=== PATIENT | female | born 1950 | race Hispanic/Latino ===

== ENCOUNTER → 2024-09-10 | Day surgery (SDC) | payer MEDICARE ==
[2024-09-09 15:08] LABS: BASOPHILS # (AUTO) 0.1 (0.0-0.1); BASOPHILS % 0.6 % (0.0-1.0); EOSINOPHILS # (AUTO) 0.2 (0.0-0.4); EOSINOPHILS % 2.6 % (0.0-6.0); HEMATOCRIT 32.3 % (34.2-44.1); HEMOGLOBIN 10.3 g/dL (12.0-16.0); LYMPHOCYTES # (AUTO) 3.3 (1.0-3.2); LYMPHOCYTES % 34.9 % (18.0-39.1); MEAN CORPUSCULAR HEMOGLOBIN 28.9 pg (28-32); MEAN CORPUSCULAR HGB CONC 31.9 g/dL (31-35); MEAN CORPUSCULAR VOLUME 90.5 fL (81-99); MONOCYTES # (AUTO) 0.7 (0.2-0.8); MONOCYTES % 7.2 % (4.4-11.3); NEUTROPHILS # (AUTO) 5.1 (2.1-6.9); NEUTROPHILS % 54.4 % (38.7-80.0); PLATELET COUNT 235 x10e3/uL (140-360); RED BLOOD COUNT 3.57 x10e6/uL (3.6-5.1); WHITE BLOOD COUNT 9.41 x10e3/uL (4.8-10.8)
[2024-09-09 15:29] LABS: ALBUMIN 3.7 g/dL (3.5-5.0); ALBUMIN/GLOBULIN RATIO 1.2 (0.8-2.0); BILIRUBIN,TOTAL 0.2 mg/dL (0.2-1.2); CALCIUM 9.3 mg/dL (8.4-10.2); CREATININE, SERUM 1.18 mg/dL (0.57-1.11); TOTAL PROTEIN 6.9 g/dL (6.5-8.1)
[~2024-09-10] MED LIST: ACETAMINOPHEN 1000 MG/100 ML 100 ML IV ONE; BENICAR5 MG PO; CELEXA10 MG PO; CRESTOR40 MG PO; DEXAMETHASONE SOD PHOS INJ 4 MG/ML SDV ONE; FAMOTIDINE20 MG PO; FENTANYL CITRATE/PF 100MCG/2 ML INJ ONE; FLONASE ALLERG9.9 ML INH; GABAPENTIN300 MG PO; HUMALOG SC; JANUVIA100 MG PO; LABETALOL HCL 20 ML ONE; LIDOCAINE HCL 2% LOCAL INJ 5 ML SDV VIAL INJ ONE; METFORMIN HCL500 MG PO; METOPROLOL SUCC25 MG PO; MONTELUKAST SOD10 MG PO; MOUNJARO2.5 MG/0.5 SC; ONDANSETRON HCL INJ 2MG/ML 2ML 2 MG/ML VIAL ONE; PHENYLEPHRINE HCL 1% 10 MG/ML VIAL ONE; PROPOFOL IV EMULSION 10 MG/ML 20 ML VIAL ONE; ROCURONIUM BROMIDE 1 ML IV ONE; SEVOFLURANE INHAL SOLN 250 ML PEN BTL ONE; SUGAMMADEX SODIUM 200 MG/2 ML VIAL IV ONE; TRESIBA100 UNIT/1 SC; ZETIA10 MG PO
[2024-09-10] MEDS: CEFTRIAXONE 1 GM VIAL ONE (11:50)
[2024-09-10] MEDS: SODIUM CHLORIDE 0.9% 1000ML 1,000 ML ONE (11:52)
[2024-09-10 16:09] VITALS: TEMP 97.5
[2024-09-10 17:15] VITALS: BP 155/67; PULSE 63; RESP 16; O2SAT 97
== END | disposition home or self-care (01) ==
LOC: OR 11:22
PROVIDERS: ATTEND Urology
DX: C67.9 Malignant neoplasm of bladder, unspecified (principal); N36.41 Hypermobility of urethra; N81.2 Incomplete uterovaginal prolapse; N95.2 Postmenopausal atrophic vaginitis; I10 Essential (primary) hypertension; E78.5 Hyperlipidemia, unspecified; E11.9 Type 2 diabetes mellitus without complications; J45.909 Unspecified asthma, uncomplicated; K21.9 Gastro-esophageal reflux disease without esophagitis; K58.9 Irritable bowel syndrome, unspecified; M06.9 Rheumatoid arthritis, unspecified; M19.90 Unspecified osteoarthritis, unspecified site; F32.A Depression, unspecified; Z01.810 Encounter for preprocedural cardiovascular examination; Z01.812 Encounter for preprocedural laboratory examination; Z01.818 Encounter for other preprocedural examination; Z79.84 Long term (current) use of oral hypoglycemic drugs; Z79.85 Long-term (current) use of injectable non-insulin antidiabetic drugs; Z79.4 Long term (current) use of insulin; Z79.899 Other long term (current) drug therapy
CPT/HCPCS: 36415 ×2; 52005; 52240; 71046; 74420; 80053; 82948; 85025; 87086; 88304; 93005; C1758; J0131; J0696; J1100; J2003; J2371; J2405; J2704; J3010; J3490; J7030

== ENCOUNTER → 2024-12-03 | Day surgery (SDC) | payer MEDICARE ==
[~2024-12-03] MED LIST changes: +FAMOTIDINE 20 MG/2 ML VIAL IV ONE; +GLYCOPYRROLATE INJ 0.2 MG/ML VIAL ONE; -LABETALOL HCL 20 ML ONE; -ROCURONIUM BROMIDE 1 ML IV ONE; -SEVOFLURANE INHAL SOLN 250 ML PEN BTL ONE; -SUGAMMADEX SODIUM 200 MG/2 ML VIAL IV ONE
[2024-12-03] MEDS: CEFTRIAXONE 1 GM VIAL ONE (06:31)
[2024-12-03] MEDS: SODIUM CHLORIDE 0.9% 1000ML 1,000 ML ONE (06:31)
[2024-12-03 06:49] LABS: BASOPHILS # (AUTO) 0.1 (0.0-0.1); BASOPHILS % 0.5 % (0.0-1.0); EOSINOPHILS # (AUTO) 0.4 (0.0-0.4); EOSINOPHILS % 3.3 % (0.0-6.0); HEMATOCRIT 30.8 % (34.2-44.1); HEMOGLOBIN 9.6 g/dL (12.0-16.0); LYMPHOCYTES # (AUTO) 3.4 (1.0-3.2); MEAN CORPUSCULAR HEMOGLOBIN 27.2 pg (28-32); MEAN CORPUSCULAR HGB CONC 31.2 g/dL (31-35); MEAN CORPUSCULAR VOLUME 87.3 fL (81-99); MONOCYTES # (AUTO) 0.8 (0.2-0.8); NEUTROPHILS # (AUTO) 6.3 (2.1-6.9); NEUTROPHILS % 57.6 % (38.7-80.0); PLATELET COUNT 261 x10e3/uL (140-360); RED BLOOD COUNT 3.53 x10e6/uL (3.6-5.1); RED CELL DISTRIBUTION WIDTH 16.3 % (11.7-14.4); WHITE BLOOD COUNT 10.94 x10e3/uL (4.8-10.8)
[2024-12-03 07:19] LABS: ALBUMIN 3.8 g/dL (3.5-5.0); ALBUMIN/GLOBULIN RATIO 1.1 (0.8-2.0); ANION GAP 13.8 mmol/L (8-16); BILIRUBIN,TOTAL 0.2 mg/dL (0.2-1.2); CALCIUM 9.1 mg/dL (8.4-10.2); CREATININE, SERUM 1.2 mg/dL (0.57-1.11); POTASSIUM 3.8 mmol/L (3.5-5.1); TOTAL PROTEIN 7.4 g/dL (6.5-8.1)
[2024-12-03 09:41] VITALS: TEMP 98.1
[2024-12-03] MEDS: PHENAZOPYRIDINE HCL 100 MG TAB ONE (10:15)
[2024-12-03 11:25] VITALS: BP 147/79; PULSE 82; RESP 18; O2SAT 97
== END | disposition home or self-care (01) ==
LOC: OR 05:55
PROVIDERS: ATTEND Urology
DX: C67.9 Malignant neoplasm of bladder, unspecified (principal); N32.89 Other specified disorders of bladder; N81.2 Incomplete uterovaginal prolapse; N36.41 Hypermobility of urethra; N95.2 Postmenopausal atrophic vaginitis; I10 Essential (primary) hypertension; E78.5 Hyperlipidemia, unspecified; J45.909 Unspecified asthma, uncomplicated; E11.9 Type 2 diabetes mellitus without complications; F32.A Depression, unspecified; K58.9 Irritable bowel syndrome, unspecified; E66.9 Obesity, unspecified; M19.90 Unspecified osteoarthritis, unspecified site; Z79.84 Long term (current) use of oral hypoglycemic drugs; Z79.85 Long-term (current) use of injectable non-insulin antidiabetic drugs; Z79.4 Long term (current) use of insulin; Z79.899 Other long term (current) drug therapy; Z68.30 Body mass index [BMI] 30.0-30.9, adult
CPT/HCPCS: 36415; 52005; 52224; 74420; 80053; 82948; 85025; 87086; 87186; 88305; C1758; J0131; J0696; J1100; J1308; J2003; J2371; J2405; J2704; J3010; J7030

== ENCOUNTER 2025-04-08 08:29 | Inpatient (IN) | payer MEDICARE ==
[2025-04-07 11:52] LABS: BASOPHILS % 0.5 % (0.0-1.0); EOSINOPHILS % 3.2 % (0.0-6.0); LYMPHOCYTES % 28.5 % (18.0-39.1); MONOCYTES % 6.6 % (4.4-11.3); NEUTROPHILS % 61.0 % (38.7-80.0); RED CELL DISTRIBUTION WIDTH 14.8 % (11.7-14.4)
[2025-04-07 12:24] LABS: EST GLOMERULAR FILTRATION RATE 52.0 ML/MIN (>=60)
[~2025-04-08] VITALS: Ht 149.9 cm; Wt 63.5 kg
[~2025-04-08 08:29] MED LIST changes: -ACETAMINOPHEN 1000 MG/100 ML 100 ML IV ONE; -DEXAMETHASONE SOD PHOS INJ 4 MG/ML SDV ONE; -FAMOTIDINE 20 MG/2 ML VIAL IV ONE; -FENTANYL CITRATE/PF 100MCG/2 ML INJ ONE; -GLYCOPYRROLATE INJ 0.2 MG/ML VIAL ONE; +IRON325 M1 PO; -LIDOCAINE HCL 2% LOCAL INJ 5 ML SDV VIAL INJ ONE; +MAGNESIUM GLUCO27 MG PO; -ONDANSETRON HCL INJ 2MG/ML 2ML 2 MG/ML VIAL ONE; -PHENYLEPHRINE HCL 1% 10 MG/ML VIAL ONE; -PROPOFOL IV EMULSION 10 MG/ML 20 ML VIAL ONE
[2025-04-08] MEDS: CEFAZOLIN SODIUM 2 GM ONE (09:26)
[2025-04-08] MEDS: SODIUM CHLORIDE 0.9% 1000ML 1,000 ML ONE (09:26)
[2025-04-08] MEDS ORDERED: SEVOFLURANE INHAL SOLN 250 ML PEN BTL ONE (10:29)
[2025-04-08] MEDS ORDERED: PROPOFOL IV EMULSION 10 MG/ML 20 ML VIAL ONE (10:29)
[2025-04-08] MEDS ORDERED: LIDOCAINE HCL 2% LOCAL INJ 5 ML SDV VIAL INJ ONE (10:29)
[2025-04-08] MEDS ORDERED: FENTANYL CITRATE/PF 100MCG/2 ML INJ ONE (10:29)
[2025-04-08] MEDS ORDERED: ROCURONIUM BROMIDE 1 ML IV ONE ×2 (10:29→13:37)
[2025-04-08] MEDS ORDERED: ACETAMINOPHEN 1000 MG/100 ML 100 ML IV ONE (11:48)
[2025-04-08] MEDS ORDERED: FAMOTIDINE 20 MG/2 ML VIAL IV ONE (11:49)
[2025-04-08] MEDS ORDERED: ONDANSETRON HCL INJ 2MG/ML 2ML 2 MG/ML VIAL ONE (11:49)
[2025-04-08] MEDS ORDERED: DEXAMETHASONE SOD PHOS INJ 4 MG/ML SDV ONE (11:49)
[2025-04-08] MEDS ORDERED: DIPHENHYDRAMINE HCL INJ 50 MG/ML VIAL IM PRN (13:00)
[2025-04-08] MEDS ORDERED: ACETAMINOPHEN 1000 MG/100 ML IV PRN (13:00)
[2025-04-08] MEDS ORDERED: ONDANSETRON HCL INJ 2MG/ML 2ML 2 MG/ML VIAL IV PRN (13:00)
[2025-04-08] MEDS: SODIUM CHLORIDE 0.9% 250ML IRRIG IR SCH (13:00)
[2025-04-08] MEDS ORDERED: NALOXONE HCL INJ 0.4 MG/ML AMP IV PRN (13:00)
[2025-04-08] MEDS ORDERED: PHENYLEPHRINE HCL 1% 10 MG/ML VIAL ONE (13:41)
[2025-04-08] MEDS ORDERED: SODIUM CHLORIDE 0.9% 1000ML 2,000 ML ONE (14:14)
[2025-04-08] MEDS ORDERED: LACTATED RINGER'S 1,000 ML ONE (14:14)
[2025-04-08] MEDS ORDERED: SUGAMMADEX SODIUM 200 MG/2 ML VIAL IV ONE (16:02)
[2025-04-08] MEDS ORDERED: HYDROMORPHONE 2MG/ML ONE (16:04)
[2025-04-08] MEDS: MORPHINE SULFATE 1 MG/ML 30ML PCA IV PRN (17:30)
[2025-04-08 17:49] LABS: BASOPHILS % 0.2 % (0.0-1.0); EOSINOPHILS % 0.1 % (0.0-6.0); LYMPHOCYTES % 14.1 % (18.0-39.1); MONOCYTES % 3.8 % (4.4-11.3); NEUTROPHILS % 81.3 % (38.7-80.0); RED CELL DISTRIBUTION WIDTH 15.3 % (11.7-14.4)
[2025-04-08 18:10] LABS: EST GLOMERULAR FILTRATION RATE 70.0 ML/MIN (>=60)
[2025-04-08] MEDS: MORPHINE SULFATE 1 MG/ML 30ML PCA ONE (18:28)
[2025-04-08 19:00] VITALS: BP 118/53; PULSE 88; PULSE 98; RESP 10; RESP 14; TEMP 96.8; O2SAT 90; O2SAT 95
[2025-04-08 19:27] VITALS: PULSE 93; RESP 14; O2SAT 94
[2025-04-08 20:00] VITALS: BP 126/53; PULSE 100; PULSE 95; RESP 13; RESP 15; O2SAT 92; O2SAT 94
[2025-04-08 21:00] VITALS: BP 127/53; PULSE 100; RESP 11; O2SAT 95
[2025-04-08] MEDS: SODIUM CHLORIDE 0.9% 1000ML 1,000 ML IV SCH (21:00)
[2025-04-08 22:01] VITALS: BP 127/55; PULSE 102; RESP 11; O2SAT 96
[2025-04-08 23:00] VITALS: BP 125/55; PULSE 103; RESP 11; O2SAT 98
[2025-04-09] VITALS (28 sets, daily range): BP systolic 106–155; BP diastolic 48–68; PULSE 83–109; RESP 6–19; TEMP 97.4–99.6; O2SAT 9–99
[2025-04-09 05:38] LABS: BASOPHILS % 0.2 % (0.0-1.0); EOSINOPHILS % 0.1 % (0.0-6.0); LYMPHOCYTES % 9.0 % (18.0-39.1); MONOCYTES % 9.3 % (4.4-11.3); NEUTROPHILS % 81.0 % (38.7-80.0); RED CELL DISTRIBUTION WIDTH 15.5 % (11.7-14.4)
[2025-04-09 05:50] LABS: EST GLOMERULAR FILTRATION RATE 38.0 ML/MIN (>=60)
[2025-04-09] MEDS ORDERED: DEXTROSE 50% SYRINGE 50 ML IV PRN ×2 (07:30→11:00)
[2025-04-09] MEDS: INSULIN REGULAR, HUMAN 100 UNIT/1 ML SQ SCH (08:46)
[2025-04-09] MEDS: SODIUM CHLORIDE 0.9% 1000ML 1,000 ML ONE (08:58)
[2025-04-09] MEDS ORDERED: ONDANSETRON HCL INJ 2MG/ML 2ML 2 MG/ML VIAL IV PRN (11:00)
[2025-04-09] MEDS: INSULIN GLARGINE 100 UNITS/ML VIAL SQ ONE (11:59)
[2025-04-09] MEDS: INSULIN LISPRO 100 UNIT/1 ML 3ML VIAL SQ SCH (12:02)
[2025-04-09] MEDS: INSULIN GLARGINE 100 UNITS/ML VIAL SQ SCH (20:22)
[2025-04-09] MEDS: DIPHENHYDRAMINE HCL INJ 50 MG/ML VIAL IV PRN (21:00)
[2025-04-10] VITALS (27 sets, daily range): BP systolic 112–163; BP diastolic 46–74; PULSE 97–110; RESP 8–21; TEMP 97.8–98.5; O2SAT 96–99
[2025-04-10 06:08] LABS: BASOPHILS % 0.4 % (0.0-1.0); EOSINOPHILS % 4.7 % (0.0-6.0); LYMPHOCYTES % 15.6 % (18.0-39.1); MONOCYTES % 9.8 % (4.4-11.3); NEUTROPHILS % 69.0 % (38.7-80.0); RED CELL DISTRIBUTION WIDTH 15.9 % (11.7-14.4)
[2025-04-10 06:54] LABS: EST GLOMERULAR FILTRATION RATE 42.0 ML/MIN (>=60)
[2025-04-10 06:56] LABS: PHOSPHORUS 2.7 MG/DL (2.3-4.7)
[2025-04-10] MEDS: MAGNESIUM SULFATE 2GM/50ML IV ONE (11:23)
[2025-04-10] MEDS: ACETAMINOPHEN/CODEINE 300MG - 30MG TAB PO PRN (12:22)
[2025-04-10] MEDS: SODIUM CHLORIDE 0.9% 250ML 250 ML ONE (13:18)
[2025-04-10] MEDS: Morphine 2mg Syringe 2 MG/ML SYR IV PRN (16:30)
[2025-04-10] MEDS: SENNA-S TABLET PO SCH (16:30)
[2025-04-11] VITALS (28 sets, daily range): BP systolic 130–162; BP diastolic 50–127; PULSE 68–105; RESP 11–22; TEMP 97.4–98.5; O2SAT 93–99
[2025-04-11 05:14] LABS: BASOPHILS % 0.2 % (0.0-1.0); EOSINOPHILS % 3.8 % (0.0-6.0); LYMPHOCYTES % 19.2 % (18.0-39.1); MONOCYTES % 8.3 % (4.4-11.3); NEUTROPHILS % 67.7 % (38.7-80.0); RED CELL DISTRIBUTION WIDTH 16.2 % (11.7-14.4)
[2025-04-11 05:39] LABS: EST GLOMERULAR FILTRATION RATE 50.0 ML/MIN (>=60)
[2025-04-11] MEDS: INSULIN LISPRO 100 UNIT/1 ML 3ML VIAL SQ SCH (11:45)
[2025-04-12] VITALS (31 sets, daily range): BP systolic 133–189; BP diastolic 51–123; PULSE 79–116; RESP 12–22; TEMP 98.7–98.9; O2SAT 93–98
[2025-04-12 07:25] LABS: BASOPHILS % 0.3 % (0.0-1.0); EOSINOPHILS % 4.7 % (0.0-6.0); LYMPHOCYTES % 18.8 % (18.0-39.1); MONOCYTES % 8.1 % (4.4-11.3); NEUTROPHILS % 67.5 % (38.7-80.0); RED CELL DISTRIBUTION WIDTH 15.5 % (11.7-14.4)
[2025-04-12 07:44] LABS: EST GLOMERULAR FILTRATION RATE 58.0 ML/MIN (>=60)
[2025-04-12] MEDS: HYDRALAZINE HCL 20 MG/ML VIAL IV PRN (08:12)
[2025-04-12] MEDS: METOPROLOL TARTRATE 25 MG TAB PO SCH (15:12)
[2025-04-12] MEDS: VALSARTAN 160 MG TAB PO SCH (15:13)
[2025-04-13] VITALS (24 sets, daily range): BP systolic 120–158; BP diastolic 53–69; PULSE 39–83; RESP 13–21; TEMP 97.8–98.1; O2SAT 96–99
[2025-04-13] MEDS: MONTELUKAST SODIUM 10 MG TAB PO SCH (09:08)
[2025-04-13] MEDS: CITALOPRAM HYDROBROMIDE 20 MG TAB PO SCH (09:12)
[2025-04-13 11:08] LABS: BASOPHILS % 0.2 % (0.0-1.0); EOSINOPHILS % 8.2 % (0.0-6.0); LYMPHOCYTES % 19.5 % (18.0-39.1); MONOCYTES % 10.3 % (4.4-11.3); NEUTROPHILS % 61.2 % (38.7-80.0); RED CELL DISTRIBUTION WIDTH 15.3 % (11.7-14.4)
[2025-04-13 11:35] LABS: EST GLOMERULAR FILTRATION RATE 62.0 ML/MIN (>=60)
[2025-04-14] VITALS (15 sets, daily range): BP systolic 118–158; BP diastolic 50–64; PULSE 67–87; RESP 10–19; TEMP 97.9–98.2; O2SAT 94–100
[2025-04-14 05:47] LABS: BASOPHILS % 0.3 % (0.0-1.0); EOSINOPHILS % 7.8 % (0.0-6.0); LYMPHOCYTES % 23.8 % (18.0-39.1); MONOCYTES % 10.5 % (4.4-11.3); NEUTROPHILS % 56.8 % (38.7-80.0); RED CELL DISTRIBUTION WIDTH 15.0 % (11.7-14.4)
[2025-04-14 06:01] LABS: EST GLOMERULAR FILTRATION RATE 58.0 ML/MIN (>=60)
[2025-04-14] MEDS: POTASSIUM CHLORIDE 20 MEQ TAB CR PO STA (09:06)
== END 2025-04-14 11:45 | disposition home or self-care (01) | DRG 657 ==
LOC: OR 08:29 → PACU V 13:00 → ICU 18:32
PROVIDERS: ADMIT Internal Medicine; ATTEND Internal Medicine
PROC: 0TB10ZZ Excision of Left Kidney, Open Approach (ICD-10-PCS; principal; 2025-04-08 12:24)
PROC: 30233N1 Transfusion of Nonautologous Red Blood Cells into Peripheral Vein, Percutaneous Approach (ICD-10-PCS; 2025-04-10)
DX: C64.2 Malignant neoplasm of left kidney, except renal pelvis (principal); D62 Acute posthemorrhagic anemia; N17.9 Acute kidney failure, unspecified; E66.9 Obesity, unspecified; N18.9 Chronic kidney disease, unspecified; Z68.28 Body mass index [BMI] 28.0-28.9, adult
CPT/HCPCS: 36415; 71045; 80048; 80053; 82607; 82746; 82948; 83036; 83735; 84100; 84443; 85025; 86850; 86900; 86920; 88304; 88305; 88307; 88329; 88331; 93005; 94799; 96372; J0360; J0690; J1100; J1171; J1200; J1308; J1815; J2003; J2270; J2371; J2405; J2470; J3475; J7030; J7050; P9016